=== PATIENT | male | born 1945 | race Two or more races ===

== ENCOUNTER 2018-01-30 18:22 | Inpatient (IN) | payer OTHER ==
[~2018-01-30] VITALS: Ht 177.8 cm; Wt 121.6 kg
--- NOTE | 2018-01-30 18:30 | NUR ---
RECIEVED PT TO ED BED 12. PT WAS BIB [facility] FROM HOME, FOR WEAKNESS AND CHILLS, NAUSEA AND VOMITING AND COFFEE GROUND EMESIS. PT AND AT BEDSIDE ARE CITIZEN OF [place] SPEAKING ONLY, ER MD TALKING TO PT'S . BS-119 IN THE FIELD. PT WAS GIVEN ZOFRAN 4MG IVP IN THE FIELD. PT GOWNED AND PLACED ON CONT MONITORING. ALL NEEDS ARE ATTENDED, KEPT WARM AND COMFORTABLE. WILL CONTINUBE TO MONITOR
[2018-01-30] MEDS ORDERED: BENZOIN COMPOUND TINCT 60 ML BOTTLE ONE (18:41)
[2018-01-30 18:54] LABS: BASOPHILS % (AUTO) 0.2 % (0.0-2.0); HEMATOCRIT 47 % (39-51); HEMOGLOBIN 15.7 g/dL (13.5-17.5); LYMPHOCYTES # (AUTO) 1.4 /CMM (0.8-4.8); MEAN CORPUSCULAR HGB CONC 34 g/dl (31.0-36.0); MEAN CORPUSCULAR VOLUME 84 fL (80-96); MONOCYTES # (AUTO) 0.6 /CMM (0.1-1.30); MONOCYTES % (AUTO) 4.5 % (2.0-12.0); NEUTROPHILS # (AUTO) 11.5 /CMM (1.8-8.9); NEUTROPHILS % (AUTO) 83.3 % (43.0-81.0); PLATELET COUNT (AUTO) 194 /CMM (150-450); RDW COEFFICIENT OF VARIATION 13.5 (11.5-15.0); RED BLOOD CELL COUNT(AUTO) 5.59 MIL/uL (4.5-6.0); WHITE BLOOD COUNT (AUTO) 13.8 K/uL (4.3-11.0)
--- NOTE | 2018-01-30 18:56 | NUR ---
Roland (son) [phone], Lilli (daughter) [phone]
--- NOTE | 2018-01-30 18:58 | NUR ---
Kerry Phelps, PhD. [facility]
[2018-01-30] MEDS ORDERED: IV NS 0.9% 500 ML BAG IV ONE (19:00)
[2018-01-30] MEDS ORDERED: ONDANSETRON HCL/PF 4 MG/2 ML VIAL ONE (19:00)
[2018-01-30] MEDS ORDERED: ONDANSETRON HCL/PF 4 MG/2 ML VIAL IVP ONE (19:00)
[2018-01-30 19:03] LABS: CARBON DIOXIDE 38 mmol/L (21-32); CHLORIDE 104 mmol/L (98-107); CREATININE 1.4 mg/dL (0.6-1.3); GLUCOSE 105 mg/dL (74-106); POTASSIUM 3.8 mmol/L (3.5-5.1); SODIUM SERUM 144 mmol/L (136-145); UREA NITROGEN, BLOOD 37 mg/dL (7-18)
[2018-01-30 19:07] LABS: INR 0.93 (0.85-1.15)
[2018-01-30 19:08] LABS: ALANINE AMINOTRANSFERASE 23 U/L (12-78); ALBUMIN 3.9 g/dL (3.4-5.0); ALKALINE PHOSPHATASE 78 U/L (46-116); ASPARTATE AMINOTRANSFERASE 12 U/L (15-37); BILIRUBIN,DIRECT 0.1 mg/dL (0.0-0.2); BILIRUBIN,TOTAL 0.4 mg/dL (0.2-1.0); LIPASE 94 U/L (73-393); TOTAL PROTEIN, SERUM 7.7 g/dL (6.4-8.2)
--- NOTE | 2018-01-30 19:08 | NUR ---
Pt back from CT scan.
--- NOTE | 2018-01-30 19:10 | NUR ---
REPORT REC'D FROM YANE BUSTAMANTE RN FOR TOM
[2018-01-30 19:11] LABS: TROPONIN I < 0.017 ng/mL (0.00-0.056)
--- NOTE | 2018-01-30 19:30 | NUR ---
PT APPEARS TO BE RESTING COMFORTABLY WITH NO S/S OF PAIN OR DISTRESS. PT'S FAMILY IS AT THE BEDSIDE.
--- NOTE | 2018-01-30 19:50 | NUR ---
CALLING [facility] SECOND TIME [phone]
--- NOTE | 2018-01-30 19:51 | NUR ---
MS/RN NOTES POTASSIUM IV ADMINISTERED, MONITORING FOR ANY CHANGES
[2018-01-30] MEDS ORDERED: ASPIRIN 325 MG TABLET PO ONE (20:00)
[2018-01-30] MEDS ORDERED: CIPROFLOXACIN IV RTU 400 MG in PREMIX 1 EA IV SCH (20:30)
[2018-01-30 20:32] LABS: BAND % (MANUAL) 5 % (0.0-5.0); EOSINOPHILS % (MANUAL) 4 % (0-4); LYMPHOCYTES % (MANUAL) 5 % (16-48); MONOCYTES % (MANUAL) 5 % (0-11.0); NEUTROPHILS % (MANUAL) 81 (42-76)
[2018-01-30] MEDS ORDERED: CIPROFLOXACIN IV RTU 200 ML IV ONE (20:32)
[2018-01-30] MEDS ORDERED: ASPIRIN 325 MG TABLET ONE (20:32)
--- NOTE | 2018-01-30 21:28 | NUR ---
CALLING [facility] [phone] RE: PT ADMISSION. CONNECTING TO [facility] AT [facility].
--- NOTE | 2018-01-30 21:30 | NUR ---
TRYING TO SPEAK TO CAITLIN, DUDLEY COORDINATOR RE: ADMISSION OF PT. AWAITING APPROVAL. MAY NOT ANSWERING. MAY TO CALL IN 10 MINS.
--- NOTE | 2018-01-31 00:12 | NUR ---
REPORT GIVEN TO TELE NURSE.
[2018-01-31 00:20] VITALS: BP 147/71
--- NOTE | 2018-01-31 00:20 | NUR ---
MS/RN NOTES NEW ADMITTED PATIENT ARRIVED ON A GURNEY FROM ER, ACCOMPANIED BY SPOUSE, DX WITH NAUSEA, WITH WEAKNESS, AND PRIOR TAKING MEDICATION FOR UTI, ALERT X2, MORBIDLY OBESE MAN WITH UNSTABLE GAIT, REQUIRE ASSISTANCE FOR SAFETY, HX OF DM, HTN, PROSTATE CANCER, ELEVATED WBC, NKA, PATIENT OF DR RAYMOND, DIET CARDIAC AND WITH ORDER TO GIVE IV ANTIBIOTIC LEVOFLOXACIN AND PROTONIX VIA IV, OBSERVE NO PAIN, NO MOANING AND GUARDING BUT BLE FEET EDEMA PLUS 2, REQUIRE OXYGEN VIA NC AT 2L. WILL MONITOR ANY CHANGES, MD RAYMOND ORDERS ENTERED, HOME MEDICATIONS REPORTED, IV SITE ON LEFT HAND AND RIGHT AC, NO S/S OF INFILTRATION, USES DIAPER, MONITOR, BED IN LOCK POSITION, CALL LIGHTS WITHIN REACH, TELE READING [place].
[2018-01-31] MEDS ORDERED: AMLO10TA6 PO (00:22)
[2018-01-31] MEDS ORDERED: ASPI-1169 PO (00:22)
[2018-01-31 00:30] VITALS: BP 147/71
[2018-01-31] MEDS ORDERED: HYDR100T27 PO (00:34)
[2018-01-31] MEDS ORDERED: LABE200T5 PO (00:34)
[2018-01-31] MEDS ORDERED: FURO20TA4 PO (00:34)
[2018-01-31] MEDS ORDERED: ERGO500040 PO (00:34)
[2018-01-31] MEDS ORDERED: TAMS0.4C34 PO (00:34)
[2018-01-31] MEDS ORDERED: FOLI1TAB16 PO (00:34)
[2018-01-31] MEDS ORDERED: INSU100C SQ (00:34)
[2018-01-31] MEDS ORDERED: CLIN300C11 PO (00:34)
[2018-01-31] MEDS ORDERED: VALS320T2 PO (00:34)
[2018-01-31] MEDS ORDERED: INSU100V7 SQ (00:34)
[2018-01-31] MEDS ORDERED: SPIR25TA6 PO (00:34)
[2018-01-31] MEDS ORDERED: SITA50TA PO (00:34)
[2018-01-31] MEDS ORDERED: CARV25TA2 PO (00:34)
[2018-01-31] MEDS ORDERED: DOCU100C36 PO (00:34)
[2018-01-31] MEDS ORDERED: ATOR80TA PO (00:34)
[2018-01-31] MEDS ORDERED: *INSULIN REGULAR(HUMULIN R)HUM 100 UNIT/ML VIAL SQ PRN (01:00)
[2018-01-31] MEDS ORDERED: ONDANSETRON HCL/PF 4 MG/2 ML VIAL IV PRN (01:00)
[2018-01-31] MEDS ORDERED: ACETAMINOPHEN 325 MG TABLET PO PRN (01:00)
[2018-01-31] MEDS ORDERED: HYDROCODONE/APAP 5/325MG 1 EACH TABLET PO PRN (01:00)
[2018-01-31] MEDS ORDERED: DEXTROSE 50%-WATER 50 ML DISP.SYRIN IV PRN (01:00)
[2018-01-31] MEDS ORDERED: LEVOFLOXACIN 250 MG /D5W 50 ML 50 ML IV ONE (01:08)
[2018-01-31] MEDS: PANTOPRAZOLE 40 MG VIAL IV SCH ×2 (01:34→09:12)
[2018-01-31] MEDS ORDERED: LEVOFLOXACIN 250 MG /D5W 50 ML 250 MG in PREMIX 1 EA IV SCH (02:00)
[2018-01-31 04:00] VITALS: BP 152/74
--- NOTE | 2018-01-31 05:28 | NUR ---
MS/RN NOTES PER LAB, UNABLE TO DRAW BLOOD WILL CALL FOR ANOTHER TO DRAW BLOOD
--- NOTE | 2018-01-31 06:39 | NUR ---
327-2 TELE/RN NOTES PATIENT IN BED, RESTING COMFORTABLY IN BED, REQUIRE OXYGEN VIA NC AT 2L WITH OXYGEN LEVEL AT 97%, WITH BLE EDEMA,FOR REPOSITION. BED IN LOCK POSITION, CALL LIGHTS WITHIN REACH, WILL ENDORSE TO AM RN FOR TOM.
--- NOTE | 2018-01-31 07:30 | NUR ---
[employer]PORATE [employer]PERATIONS COMPLIANCE MANAGER NOTES A/O X2, KHMER SPEAKING ONLY. OXYGEN AT 2L VIA NC, NO SOB. IVC IN LEFT HAND AND ANOTHER IN RIGHT AC PATENT AND INTACT, FLUSHES WELL. DENIES PAIN, SAFETY PRECAUTION MAINTAINED. MED RECON TO FOLLOW UP WITH . WILL CONT TO MONITOR.
[2018-01-31 08:00] VITALS: BP 142/60
[2018-01-31] MEDS: BLOOD SUGAR DIAGNOSTIC 1 EACH STRIP VI SCH ×2 (08:11→12:46)
[2018-01-31] MEDS: INSULIN REGULAR, HUMAN 100 UNIT/ML 3 ML VIAL SQ PRN ×2 (08:13→12:47)
[2018-01-31] MEDS ORDERED: LEVO500T75 PO (08:57)
[2018-01-31 16:00] VITALS: BP 146/61
[2018-01-31] MEDS ORDERED: INSULIN LISPRO/ASPART 100 UNIT/ML CARTRIDGE SQ SCH (16:00)
[2018-01-31] MEDS ORDERED: hydrALAZINE HCL 50 MG TABLET PO SCH (17:00)
--- NOTE | 2018-01-31 17:19 | NUR ---
DIRECTOR OF CUSTOMER SERVICE DISCHARGED PATIENT HAS BEEN CLEARED FOR DISCHARGE HOME WITH MD, HOME HEALTH TO FOLLOW AT HOME PER CM. DENIES PAIN, NO EPISODE OF VOMITING DURING THE SHIFT, NO C/O NAUSEA OR ANY DISCOMFORT. AMBULATE WITH PT/WALKER TODAY, TOLERATED WELL PER PT WALK 30 FEET LONG. SKIN INTACT, IVC IN LEFT HAND AND RIGHT AC REMOVED, GAUZE APPLIED, NO BLEEDING NOTED. DISCHARGE INSTRUCTION GIVEN TO , SON, AND BROTHER WITH [employer] AND STRAPPER, FAMILY VERBALIZED UNDERSTANDING. [employer] WILL SCHEDULE PATIENT'S FOLLOW UP APPT WITH PRIMARY CARE PHYSICIAN, CARDIOLOGY, AND PULMONARY, PER [employer] WILL CALL FAMILY TO INFORM THE DATE AND TIME FOR THE APPOINTMENT, FAMILY IS AWARE. BELONGINGS CHECK UPON DC, PATIENT LEFT HOSP IN STABLE CONDITION VIA PRIVATE CAR, ACCOMPANIED BY HIS FAMILY.
[2018-01-31] MEDS ORDERED: CARVEDILOL 12.5 MG TABLET PO SCH (21:00)
[2018-01-31] MEDS ORDERED: LABETALOL HCL (100MG) 100 MG TABLET PO SCH (21:00)
[2018-01-31] MEDS ORDERED: INSULIN GLARGINE, 100 UNIT/ML CARTRIDGE SQ SCH (22:00)
[2018-01-31] MEDS ORDERED: ATORVASTATIN 40 MG TABLET PO SCH (22:00)
[2018-01-31] MEDS ORDERED: TAMSULOSIN 0.4 MG CAP.SR.24H PO SCH (22:00)
[2018-02-01] MEDS ORDERED: VALSARTAN 80 MG TABLET PO SCH (09:00)
[2018-02-01] MEDS ORDERED: ASPIRIN 81 MG TAB.CHEW PO SCH (09:00)
[2018-02-01] MEDS ORDERED: LEVOFLOXACIN (250MG) 250 MG TABLET PO SCH (09:00)
[2018-02-01] MEDS ORDERED: DOCUSATE SODIUM 100 MG CAPSULE PO SCH (09:00)
[2018-02-01] MEDS ORDERED: FOLIC ACID 1 MG TABLET PO SCH (09:00)
[2018-02-01] MEDS ORDERED: LINAGLIPTIN 5 MG TABLET PO SCH (09:00)
[2018-02-01] MEDS ORDERED: SPIRONOLACTONE 25 MG TABLET PO SCH (09:00)
[2018-02-01] MEDS ORDERED: AMLODIPINE BESYLATE 10 MG TABLET PO SCH (09:00)
[2018-02-01] MEDS ORDERED: FUROSEMIDE 20 MG TABLET PO SCH (09:00)
== END 2018-01-31 17:15 | disposition home health service (06) | DRG 204 ==
LOC: ER 18:23 → TELE 23:58
PROVIDERS: ADMIT Internal Medicine; ATTEND Internal Medicine
DX: I95.1 Orthostatic hypotension (principal); I11.0 Hypertensive heart disease with heart failure; E11.22 Type 2 diabetes mellitus with diabetic chronic kidney disease; I50.9 Heart failure, unspecified; N18.3 Chronic kidney disease, stage 3 (moderate); E11.9 Type 2 diabetes mellitus without complications; I13.0 Hypertensive heart and chronic kidney disease with heart failure and stage 1 through stage 4 chronic kidney disease, or unspecified chronic kidney disease; Z79.899 Other long term (current) drug therapy; Z79.82 Long term (current) use of aspirin; Z79.4 Long term (current) use of insulin; I65.21 Occlusion and stenosis of right carotid artery
CPT/HCPCS: 36415; 70450-TC; 71045-TC; 80048-TC; 80076-TC; 82962-TC; 83605-TC; 83690-TC; 84484-TC; 85025-TC; 85730-TC; 86850-TC; 87040-TC; 87081-TC; 93307-TC; 93880-TC; A4216; A4606; C9113; J0744; J1815; J1956; J2405; J7030; J7040; Z7610